=== PATIENT | female | born 1940 | race Caucasian/White ===

== ENCOUNTER 2021-12-12 23:50 | Emergency (ER) | payer MEDICARE, OTHER ==
[2021-12-13 00:08] VITALS: BP 139/65; PULSE 54
[2021-12-13] MEDS: Acetaminophen 500 MG Tab PO ONE (00:48)
[2021-12-13] MEDS: Acetaminophen 500 MG Tab ONE (00:50)
== END 2021-12-13 01:15 | disposition home or self-care (01) ==
LOC: KA.ED 23:50
DX: S52.531A Colles' fracture of right radius, initial encounter for closed fracture (principal); Z88.0 Allergy status to penicillin; Z79.899 Other long term (current) drug therapy; W19.XXXA Unspecified fall, initial encounter
CPT/HCPCS: 25605; 73100-RT; 99283; 99283-25; A9270-GY